=== PATIENT | female | born 1965 | race Hispanic/Latino ===

== ENCOUNTER 2021-09-13 08:39 | Outpatient (CLI) | payer OTHER, SELFPAY | END 2021-09-13 08:40 | disposition home or self-care (01) | LOC: CSHWCC 08:39 | PROVIDERS: ATTEND Nurse Practitioner Family | DX: I87.312 Chronic venous hypertension (idiopathic) with ulcer of left lower extremity (principal); L97.822 Non-pressure chronic ulcer of other part of left lower leg with fat layer exposed; R60.0 Localized edema | CPT/HCPCS: 11042; 99203; G0463 ==

== ENCOUNTER 2021-09-27 10:33 | Outpatient (CLI) | payer OTHER | END 2021-09-27 10:34 | disposition home or self-care (01) | LOC: CSHWCC 10:33 | PROVIDERS: ATTEND Nurse Practitioner Family | DX: I87.312 Chronic venous hypertension (idiopathic) with ulcer of left lower extremity (principal); L97.822 Non-pressure chronic ulcer of other part of left lower leg with fat layer exposed; R60.0 Localized edema | CPT/HCPCS: 99213; G0463 ==

== ENCOUNTER 2021-10-07 08:02 | Outpatient (CLI) | payer OTHER, SELFPAY | END 2021-10-07 08:03 | disposition home or self-care (01) | LOC: CSHWCC 08:02 | PROVIDERS: ATTEND Nurse Practitioner Family | DX: I87.312 Chronic venous hypertension (idiopathic) with ulcer of left lower extremity (principal); L97.822 Non-pressure chronic ulcer of other part of left lower leg with fat layer exposed; R60.0 Localized edema | CPT/HCPCS: 11042 ==

== ENCOUNTER 2021-10-21 08:44 | Outpatient (CLI) | payer OTHER | END 2021-10-21 08:45 | disposition home or self-care (01) | LOC: CSHWCC 08:44 | PROVIDERS: ATTEND Nurse Practitioner Family | DX: I87.312 Chronic venous hypertension (idiopathic) with ulcer of left lower extremity (principal); L97.822 Non-pressure chronic ulcer of other part of left lower leg with fat layer exposed; R60.0 Localized edema ==

== ENCOUNTER 2021-11-21 14:55 | Outpatient (CLI) | payer SELFPAY | END 2021-11-21 14:56 | disposition home or self-care (01) | LOC: CSHWCC 14:55 | PROVIDERS: ATTEND Nurse Practitioner Family | DX: I87.312 Chronic venous hypertension (idiopathic) with ulcer of left lower extremity (principal); L97.822 Non-pressure chronic ulcer of other part of left lower leg with fat layer exposed; R60.0 Localized edema ==

== ENCOUNTER 2021-12-15 08:13 | Outpatient (CLI) | payer OTHER | END 2021-12-15 08:14 | disposition home or self-care (01) | LOC: CSHWCC 08:13 | PROVIDERS: ATTEND Nurse Practitioner Family | DX: I87.312 Chronic venous hypertension (idiopathic) with ulcer of left lower extremity (principal); L97.822 Non-pressure chronic ulcer of other part of left lower leg with fat layer exposed; R60.0 Localized edema ==

== ENCOUNTER 2022-08-31 13:10 | Inpatient (IN) | payer SELFPAY ==
[~2022-08-31 13:10] MED LIST: Iopamidol 370 76% 100 ML VIAL ONE
[2022-08-31 13:57] LABS: Hemoglobin 8.4 g/dL (12.0-15.5); Mean Corpuscular HGB CONC 32.1 g/dL (32.0-36.0); Mean Corpuscular Hemoglobin 30.7 pg (27.0-33.0); Mean Corpuscular Volume 95.6 fl (81.6-98.3); Mean Platelet Volume 9.7 fl (7.4-10.4); Platelet Count 437 10x3/uL (150-450); Red Blood Cell (RBC) Count 2.74 10x6/uL (3.90-5.03); White Blood Cell (WBC) Count 13.8 10x3/uL (3.5-10.5)
[2022-08-31 14:18] LABS: ALT (SGPT) 15 U/L (8-55); AST (SGOT) 17 U/L (5-34); Albumin 3.8 g/dL (3.5-5.0); Alkaline Phosphatase 88 U/L (40-110); Anion Gap 23 mmol/L (10-20); BUN (Urea Nitrogen) 43 mg/dL (9.8-20.1); Bilirubin, Total 0.3 mg/dL (0.2-1.2); CK (CPK) 27 U/L (29-168); Calc. Creatinine Clearance 0 mL/min (70-130); Calcium 8.8 mg/dL (7.8-10.44); Carbon Dioxide 23 mmol/L (22-29); Chloride 95 mmol/L (98-107); Estimated GFR 27; Globulin 2.4 g/dL (2.4-3.5); Lipase 40 U/L (8-78); MDiff Complete? YES; Magnesium 1.8 mg/dL (1.6-2.6); Manual Diff?? YES; Potassium 4.2 mmol/L (3.5-5.1); Protein, Total 6.2 g/dL (6.0-8.3); Sodium 137 mmol/L (136-145)
[2022-08-31 14:21] LABS: Glucose 52 mg/dL (70-105)
[2022-08-31] MEDS ORDERED: Dextrose 50% Abboject 50 ML SYRINGE ONE (14:31)
[2022-08-31 14:32] LABS: Bilirubin Neg (Negative); Blood, Urine 10 (Negative); Clarity Clear (Clear); Glucose, Urine (Dipstick) Normal (Negative); Ketone, Urine Negative (Negative); Leukocyte Negative (Negative); Nitrite Negative (Negative); Protein, Urine (Dipstick) 100 mg/dl (Neg-Trace); Specific Gravity, Urine 1.015 (1.005-1.030); Urobilinogen Normal mg/dL (Less than 2)
[2022-08-31] MEDS ORDERED: cefTRIAXone (ROCEPHIN) 2 GM VIAL ONE (14:32)
[2022-08-31 14:37] LABS: Band 5 % (5-11); Lymphocytes 22 % (21-51); Metamyelocyte 6 % (0-0); Monocytes 8 % (0-10); Myelocyte 2 % (0-0); Neutrophil 56 % (42-75); Nucleated RBC (Manual Ct) 1 % (0); Reactive Lymphocytes 1 % (0-10)
[2022-08-31 14:39] LABS: Anisocytosis SLIGHT = 6-15 cells (100X) (0-5/hpf); Platelet Morphology Comment Appears Adequate
[2022-08-31 14:40] LABS: Bite Cells SLIGHT = 2-5 cells (100X) (0-1/hpf); Hypochromia SLIGHT = 6-15 cells (100X) (0-5/hpf); Macrocytosis SLIGHT = 6-15 cells (100X) (0-5/hpf); Microcytosis SLIGHT = 6-15 cells (100X) (0-5/hpf); Ovalocytes SLIGHT = 2-5 cells (100X) (0-1/hpf); Polychromasia SLIGHT = 2-3 cells (100X) (0-2/hpf)
[2022-08-31 14:56] LABS: CAUTI Indications for Culture Dysuria,urgency,freq; RBC/HPF 0-3 HPF (0-3); Squamous Epithelial 0-3 HPF (0-3); WBC/HPF 0-3 HPF (0-3)
[2022-08-31 14:57] LABS: Bacteria/HPF 2+ HPF (None Seen); Mucous/LPF 1+ LPF (<2+)
[2022-08-31 14:58] LABS: Transitional Epithelial 0-3 HPF (None Seen)
[2022-08-31 14:59] LABS: Urine Culture Reflex No No
[2022-08-31] MEDS ORDERED: Vancomycin 1 GM VIAL ONE (16:45)
[2022-08-31 17:03] LABS: Lactic Acid 4.1 mmol/L (0.5-2.2)
[2022-08-31] MEDS ORDERED: Vancomycin HCl 1 GM in Sodium Chloride 0.9% 250 ML 250 ML IVPB SCH (17:30)
[2022-08-31] MEDS ORDERED: Dextrose 50% Abboject 50 ML SYRINGE SLOW IVP PRN (17:34)
[2022-08-31] MEDS ORDERED: Dextrose 5% in Water 1,000 ML IV PRN (17:34)
[2022-08-31 18:35] VITALS: BMI 30.6
[2022-08-31] MEDS ORDERED: Vancomycin HCl 1.25 GM, Admixture Fee 1 EACH in Sodium Chloride 0.9% 250 ML 250 ML IVPB SCH (18:45)
[2022-08-31] MEDS: Sodium Chloride 0.9% 1,000 ML IV SCH ×2 (18:45→20:28)
[2022-08-31] MEDS ORDERED: Vancomycin Dose by Levels Sliding Scale (Wt 71-99) FS SCH (18:45)
[2022-08-31] MEDS: Cefepime 1 GM in Sodium Chloride 0.9% 100 ML IVPB SCH (20:28)
[2022-08-31] MEDS: Atorvastatin Calcium 40 MG TAB PO SCH (20:28)
[2022-08-31] MEDS ORDERED: Apixaban 2.5 MG TAB PO SCH (21:00)
[2022-09-01 04:31] LABS: Hemoglobin 7.3 g/dL (12.0-15.5); Mean Corpuscular HGB CONC 31.9 g/dL (32.0-36.0); Mean Corpuscular Hemoglobin 30.4 pg (27.0-33.0); Mean Corpuscular Volume 95.4 fl (81.6-98.3); Mean Platelet Volume 9.4 fl (7.4-10.4); Platelet Count 352 10x3/uL (150-450); White Blood Cell (WBC) Count 9.9 10x3/uL (3.5-10.5)
[2022-09-01 04:32] LABS: MDiff Complete? YES
[2022-09-01 04:40] LABS: Lactic Acid 0.7 mmol/L (0.5-2.2)
[2022-09-01 04:43] LABS: Anion Gap 17 mmol/L (10-20); BUN (Urea Nitrogen) 39 mg/dL (9.8-20.1); Calc. Creatinine Clearance 55 mL/min (70-130); Calcium 7.8 mg/dL (7.8-10.44); Carbon Dioxide 23 mmol/L (22-29); Chloride 103 mmol/L (98-107); Estimated GFR 43; Glucose 87 mg/dL (70-105); Potassium 3.9 mmol/L (3.5-5.1); Sodium 139 mmol/L (136-145)
[2022-09-01 04:53] LABS: Band 14 % (5-11); Lymphocytes 25 % (21-51); Metamyelocyte 3 % (0-0); Monocytes 7 % (0-10); Neutrophil 51 % (42-75)
[2022-09-01 04:56] LABS: Hypochromia SLIGHT = 6-15 cells (100X) (0-5/hpf); Macrocytosis SLIGHT = 6-15 cells (100X) (0-5/hpf); Microcytosis SLIGHT = 6-15 cells (100X) (0-5/hpf); Polychromasia SLIGHT = 2-3 cells (100X) (0-2/hpf)
[2022-09-01 04:57] LABS: Platelet Morphology Comment Appears Adequate
[2022-09-01 07:33] LABS: Phosphorus 3.9 mg/dL (2.3-4.7)
[2022-09-01 07:42] LABS: Magnesium 1.7 mg/dL (1.6-2.6)
[2022-09-01] MEDS ORDERED: Famotidine 20 MG TAB PO SCH (09:00)
[2022-09-01] MEDS ORDERED: Cefepime 1 GM VIAL ONE (09:59)
[2022-09-01] MEDS ORDERED: Sodium Chloride 0.9% 100 ML ONE (09:59)
[2022-09-01] MEDS: Cefepime 1 GM in Sodium Chloride 0.9% 100 ML IVPB SCH ×2 (10:15→20:31)
[2022-09-01 11:01] LABS: Hemoglobin 7.5 g/dL (12.0-15.5); Platelet Count 359 10x3/uL (150-450)
[2022-09-01] MEDS ORDERED: Pantoprazole 40 MG VIAL IVP SCH (11:30)
[2022-09-01 11:56] LABS: Legionella Urinary Ag Negative (Negative)
[2022-09-01 11:57] LABS: Strep pneumo Urine Ag NEGATIVE (NEGATIVE)
[2022-09-01] MEDS ORDERED: Apixaban 5 MG TAB PO SCH (14:00)
[2022-09-01 19:26] LABS: Vancomycin, Random 7.4 ug/mL (See Comment)
[2022-09-01] MEDS ORDERED: Vancomycin HCl 1 GM in Sodium Chloride 0.9% 250 ML 250 ML IVPB SCH (20:00)
[2022-09-01] MEDS: Atorvastatin Calcium 40 MG TAB PO SCH (20:31)
[2022-09-01] MEDS: Apixaban 5 MG TAB PO SCH (20:31)
[2022-09-01] MEDS: HumaLOG 300 UNITS/3 ML VIAL SC PRN (20:39)
[2022-09-01] MEDS: Acetaminophen 325 MG TAB PO PRN (20:48)
[2022-09-01] MEDS: Guaifenesin DM 100-10/5 ML UDCUP PO PRN (22:28)
[2022-09-02] MEDS: Acetaminophen 325 MG TAB PO PRN (04:34)
[2022-09-02] MEDS: HumaLOG 300 UNITS/3 ML VIAL SC PRN ×2 (04:36→21:04)
[2022-09-02] MEDS: Guaifenesin DM 100-10/5 ML UDCUP PO PRN (04:39)
[2022-09-02 05:33] LABS: Magnesium 1.7 mg/dL (1.6-2.6)
[2022-09-02 08:33] LABS: Hemoglobin 7.5 g/dL (12.0-15.5); Mean Corpuscular HGB CONC 31.8 g/dL (32.0-36.0); Mean Corpuscular Hemoglobin 30.7 pg (27.0-33.0); Mean Corpuscular Volume 96.7 fl (81.6-98.3); Mean Platelet Volume 9.9 fl (7.4-10.4); Platelet Count 384 10x3/uL (150-450); RBC Distribution Width 15.3 % (11.5-14.5); Red Blood Cell (RBC) Count 2.44 10x6/uL (3.90-5.03); White Blood Cell (WBC) Count 9.9 10x3/uL (3.5-10.5)
[2022-09-02 08:38] LABS: ALT (SGPT) 12 U/L (8-55); AST (SGOT) 14 U/L (5-34); Albumin 3.1 g/dL (3.5-5.0); Alkaline Phosphatase 67 U/L (40-110); Anion Gap 15 mmol/L (10-20); BUN (Urea Nitrogen) 32 mg/dL (9.8-20.1); Bilirubin, Total 0.2 mg/dL (0.2-1.2); Calc. Creatinine Clearance 79 mL/min (70-130); Calcium 8.3 mg/dL (7.8-10.44); Carbon Dioxide 25 mmol/L (22-29); Chloride 106 mmol/L (98-107); Estimated GFR 66; Globulin 2.5 g/dL (2.4-3.5); Glucose 153 mg/dL (70-105); Potassium 3.8 mmol/L (3.5-5.1); Protein, Total 5.6 g/dL (6.0-8.3); Sodium 142 mmol/L (136-145)
[2022-09-02] MEDS ORDERED: Pantoprazole 40 MG VIAL IVP SCH (09:00)
[2022-09-02 09:06] LABS: Band 6 % (5-11); Lymphocytes 22 % (21-51); Metamyelocyte 1 % (0-0); Monocytes 7 % (0-10); Myelocyte 4 % (0-0); Reactive Lymphocytes 1 % (0-10)
[2022-09-02 09:08] LABS: Anisocytosis SLIGHT = 6-15 cells (100X) (0-5/hpf); Hypochromia SLIGHT = 6-15 cells (100X) (0-5/hpf); Microcytosis SLIGHT = 6-15 cells (100X) (0-5/hpf); Neutrophil 58 % (42-75); Polychromasia SLIGHT = 2-3 cells (100X) (0-2/hpf)
[2022-09-02 09:09] LABS: Platelet Morphology Comment Platelets Normal
[2022-09-02 09:10] LABS: Large Platelets SLIGHT (None Seen)
[2022-09-02 09:11] LABS: MDiff Complete? YES
[2022-09-02 09:12] LABS: Macrocytosis SLIGHT = 6-15 cells (100X) (0-5/hpf); Manual Diff?? YES; Ovalocytes SLIGHT = 2-5 cells (100X) (0-1/hpf)
[2022-09-02] MEDS: Cefepime 1 GM in Sodium Chloride 0.9% 100 ML IVPB SCH (09:28)
[2022-09-02] MEDS: Apixaban 5 MG TAB PO SCH (09:29)
[2022-09-02] MEDS ORDERED: Acetaminophen 650 MG Suppository PR PRN (11:13)
[2022-09-02] MEDS ORDERED: Furosemide 40 MG/4 ML VIAL SLOW IVP SCH (11:15)
[2022-09-02] MEDS: cefOXitin Sodium 2 GM, Admixture Fee 1 EACH in Sodium Chloride 0.9% 100 ML IVPB SCH ×2 (15:40→22:17)
[2022-09-02] MEDS: Amino Acids 4.25 %/Dextrose 5% 1,000 ML IV SCH (17:17)
[2022-09-02] MEDS: Enalaprilat Dihydrate 1.25 MG/ML VIAL SLOW IVP SCH ×2 (18:50→23:36)
[2022-09-02] MEDS: Atorvastatin Calcium 40 MG TAB PO SCH (20:57)
[2022-09-03] MEDS: HumaLOG 300 UNITS/3 ML VIAL SC PRN ×4 (01:04→21:58)
[2022-09-03 04:31] LABS: Hemoglobin 7.5 g/dL (12.0-15.5); Mean Corpuscular HGB CONC 32.2 g/dL (32.0-36.0); Mean Corpuscular Hemoglobin 30.6 pg (27.0-33.0); Mean Corpuscular Volume 95.1 fl (81.6-98.3); Mean Platelet Volume 9.7 fl (7.4-10.4); Platelet Count 371 10x3/uL (150-450); RBC Distribution Width 14.7 % (11.5-14.5); Red Blood Cell (RBC) Count 2.45 10x6/uL (3.90-5.03); White Blood Cell (WBC) Count 9.9 10x3/uL (3.5-10.5)
[2022-09-03 04:37] LABS: ALT (SGPT) 11 U/L (8-55); AST (SGOT) 15 U/L (5-34); Albumin 3.2 g/dL (3.5-5.0); Alkaline Phosphatase 69 U/L (40-110); Anion Gap 14 mmol/L (10-20); BUN (Urea Nitrogen) 27 mg/dL (9.8-20.1); Bilirubin, Total 0.2 mg/dL (0.2-1.2); Calc. Creatinine Clearance 97 mL/min (70-130); Calcium 8.2 mg/dL (7.8-10.44); Carbon Dioxide 25 mmol/L (22-29); Chloride 104 mmol/L (98-107); Estimated GFR 85; Globulin 2.3 g/dL (2.4-3.5); Glucose 176 mg/dL (70-105); Potassium 3.4 mmol/L (3.5-5.1); Protein, Total 5.5 g/dL (6.0-8.3); Sodium 140 mmol/L (136-145)
[2022-09-03] MEDS ORDERED: cloNIDine 0.1mg/24 Hour PATCH TD SCH (04:45)
[2022-09-03 05:19] LABS: MDiff Complete? YES
[2022-09-03 05:25] LABS: Band 4 % (5-11); Lymphocytes 15 % (21-51); Metamyelocyte 3 % (0-0); Monocytes 6 % (0-10); Myelocyte 2 % (0-0); Neutrophil 69 % (42-75); Promyelocytes 1 % (0-0)
[2022-09-03 05:26] LABS: Hypochromia SLIGHT = 6-15 cells (100X) (0-5/hpf); Microcytosis SLIGHT = 6-15 cells (100X) (0-5/hpf); Polychromasia SLIGHT = 2-3 cells (100X) (0-2/hpf)
[2022-09-03 05:27] LABS: Platelet Morphology Comment Appears Adequate
[2022-09-03] MEDS: cefOXitin Sodium 2 GM, Admixture Fee 1 EACH in Sodium Chloride 0.9% 100 ML IVPB SCH ×3 (05:57→22:01)
[2022-09-03] MEDS: Enalaprilat Dihydrate 1.25 MG/ML VIAL SLOW IVP SCH ×4 (06:02→22:06)
[2022-09-03] MEDS: Furosemide 40 MG/4 ML VIAL SLOW IVP SCH (09:21)
[2022-09-03] MEDS: Pantoprazole 40 MG VIAL IVP SCH (09:21)
[2022-09-03] MEDS: Guaifenesin DM 100-10/5 ML UDCUP PO PRN (09:27)
[2022-09-03] MEDS ORDERED: Guaifenesin DM 100-10/5 ML UDCUP ONE (09:27)
[2022-09-03] MEDS ORDERED: Labetalol HCl 100 MG/20 ML VIAL SLOW IVP PRN (09:59)
[2022-09-03] MEDS ORDERED: Electrolyte Replacement Protocol 1 EACH FS SCH (11:45)
[2022-09-03] MEDS ORDERED: Magnesium 2 GM/50 ML(in water) 2 GM in Premix Bag 1 BAG IVPB SCH (12:00)
[2022-09-03] MEDS: Potassium Chloride 20 MEQ in Premix Bag 1 BAG IVPB SCH ×2 (13:35→15:14)
[2022-09-03] MEDS: Amino Acids 4.25 %/Dextrose 5% 1,000 ML IV SCH (13:45)
[2022-09-03] MEDS: Atorvastatin Calcium 40 MG TAB PO SCH (20:24)
[2022-09-04] MEDS: HumaLOG 300 UNITS/3 ML VIAL SC PRN ×3 (00:23→16:30)
[2022-09-04] MEDS: Enalaprilat Dihydrate 1.25 MG/ML VIAL SLOW IVP SCH ×2 (04:39→09:12)
[2022-09-04 04:58] LABS: Anion Gap 14 mmol/L (10-20); BUN (Urea Nitrogen) 29 mg/dL (9.8-20.1); Calc. Creatinine Clearance 98 mL/min (70-130); Calcium 8.3 mg/dL (7.8-10.44); Carbon Dioxide 23 mmol/L (22-29); Chloride 105 mmol/L (98-107); Estimated GFR 86; Glucose 170 mg/dL (70-105); Iron 57 ug/dL (50-170); Iron Binding Capacity, Total 201 mcg/dL (265-497); Magnesium 1.8 mg/dL (1.6-2.6); Sodium 138 mmol/L (136-145)
[2022-09-04] MEDS: cefOXitin Sodium 2 GM, Admixture Fee 1 EACH in Sodium Chloride 0.9% 100 ML IVPB SCH ×3 (05:56→22:07)
[2022-09-04] MEDS ORDERED: Ergocalciferol 1.25 MG(50,000 UNITS) CAP PO SCH (09:00)
[2022-09-04] MEDS ORDERED: Magnesium 2 GM/50 ML(in water) 2 GM in Premix Bag 1 BAG IVPB SCH (09:00)
[2022-09-04] MEDS: Furosemide 40 MG/4 ML VIAL SLOW IVP SCH (09:11)
[2022-09-04] MEDS: Pantoprazole 40 MG VIAL IVP SCH (09:13)
[2022-09-04] MEDS: Amino Acids 4.25 %/Dextrose 5% 1,000 ML IV SCH (12:19)
[2022-09-04] MEDS: metFORMIN 500 MG TAB PO SCH (16:30)
[2022-09-04] MEDS: Carvedilol 6.25 MG TAB PO SCH (22:05)
[2022-09-04] MEDS: Atorvastatin Calcium 40 MG TAB PO SCH (22:06)
[2022-09-04] MEDS: Lisinopril 20 MG TAB PO SCH (22:06)
[2022-09-05] MEDS ORDERED: Melatonin 3 MG TAB PO SCH (00:45)
[2022-09-05] MEDS: Apixaban 5 MG TAB PO SCH ×2 (01:56→09:24)
[2022-09-05 04:45] LABS: #Basophils 0.1 10x3/uL (0.0-0.2); #Monocytes 0.6 10x3/uL (0.0-1.1); #Neutrophils 6.3 10x3/uL (1.5-8.4); %Basophils 0.9 % (0.0-2.0); %Eosinophils 0.3 % (0.0-6.0); %Lymphocytes 18.1 % (18.0-47.0); %Neutrophils 69.3 % (40.0-75.0); Hemoglobin 7.5 g/dL (12.0-15.5); Mean Corpuscular HGB CONC 31.8 g/dL (32.0-36.0); Mean Corpuscular Hemoglobin 30.4 pg (27.0-33.0); Mean Corpuscular Volume 95.5 fl (81.6-98.3); Mean Platelet Volume 9.7 fl (7.4-10.4); Platelet Count 344 10x3/uL (150-450); RBC Distribution Width 15.2 % (11.5-14.5); Red Blood Cell (RBC) Count 2.47 10x6/uL (3.90-5.03)
[2022-09-05 05:03] LABS: Anion Gap 14 mmol/L (10-20); BUN (Urea Nitrogen) 33 mg/dL (9.8-20.1); Calc. Creatinine Clearance 74 mL/min (70-130); Calcium 8.2 mg/dL (7.8-10.44); Carbon Dioxide 23 mmol/L (22-29); Chloride 105 mmol/L (98-107); Estimated GFR 62; Glucose 296 mg/dL (70-105); Magnesium 2.3 mg/dL (1.6-2.6); Potassium 3.7 mmol/L (3.5-5.1); Sodium 138 mmol/L (136-145)
[2022-09-05] MEDS: HumaLOG 300 UNITS/3 ML VIAL SC PRN ×3 (05:44→12:24)
[2022-09-05] MEDS: cefOXitin Sodium 2 GM, Admixture Fee 1 EACH in Sodium Chloride 0.9% 100 ML IVPB SCH (05:45)
[2022-09-05] MEDS ORDERED: NIFEdipine XL 30 MG TAB PO SCH (09:00)
[2022-09-05] MEDS: Carvedilol 6.25 MG TAB PO SCH (09:23)
[2022-09-05] MEDS: metFORMIN 500 MG TAB PO SCH ×2 (09:24→18:15)
[2022-09-05] MEDS: Lisinopril 20 MG TAB PO SCH (09:24)
[2022-09-05] MEDS: Furosemide 40 MG/4 ML VIAL SLOW IVP SCH (09:27)
[2022-09-05] MEDS ORDERED: cefOXitin Sodium/Dextrose,Iso 2 GM in Premix Bag 1 BAG IVPB SCH (14:00)
[2022-09-05 17:21] VITALS: BP 119/56; TEMP 98
[2022-09-10] MEDS ORDERED: cloNIDine 0.1mg/24 Hour PATCH TD SCH (09:00)
== END 2022-09-05 20:09 | disposition home or self-care (01) | DRG 871 ==
LOC: CSHERS 13:10 → CSHTELE 18:06
PROVIDERS: ADMIT Internal Medicine; ATTEND Family Medicine
PROC: 3E03329 Introduction of Other Anti-infective into Peripheral Vein, Percutaneous Approach (ICD-10-PCS; principal; 2022-08-31)
PROC: 0T9B70Z Drainage of Bladder with Drainage Device, Via Natural or Artificial Opening (ICD-10-PCS; 2022-09-03)
DX: A41.9 Sepsis, unspecified organism (principal); J18.9 Pneumonia, unspecified organism; J69.0 Pneumonitis due to inhalation of food and vomit; N17.9 Acute kidney failure, unspecified; E87.20 Acidosis, unspecified; M84.461A Pathological fracture, right tibia, initial encounter for fracture; I10 Essential (primary) hypertension; E78.5 Hyperlipidemia, unspecified; E11.42 Type 2 diabetes mellitus with diabetic polyneuropathy; E11.649 Type 2 diabetes mellitus with hypoglycemia without coma; D64.9 Anemia, unspecified; R65.20 Severe sepsis without septic shock; R33.9 Retention of urine, unspecified; Z88.0 Allergy status to penicillin; Z79.84 Long term (current) use of oral hypoglycemic drugs; Z79.01 Long term (current) use of anticoagulants; Z79.899 Other long term (current) drug therapy; Z90.49 Acquired absence of other specified parts of digestive tract; Z86.711 Personal history of pulmonary embolism; Z79.4 Long term (current) use of insulin
CPT/HCPCS: 36415; 36416; 70450; 71045; 71275; 74177; 74230; 80048; 80053; 80202; 81001; 82533; 82550; 82607; 83540; 83550; 83605; 83615; 83690; 83735; 83880; 84100; 84145; 84443; 84484; 85025; 87040; 87081; 87449; 87633; 87899; 93005; 93010; 94760; C9113; J0692; J0694; J0696; J1650; J1815; J1940; J3370; J3475; J3480; J3490; J7050; J7999; Q9967

== ENCOUNTER 2022-12-25 13:12 | Outpatient (CLI) | payer SELFPAY | END 2022-12-25 13:13 | disposition home or self-care (01) | LOC: CSHWCC 13:12 | PROVIDERS: ATTEND Preventive Medicine Undersea and Hyperbaric Medicine | DX: I87.331 Chronic venous hypertension (idiopathic) with ulcer and inflammation of right lower extremity (principal); L97.819 Non-pressure chronic ulcer of other part of right lower leg with unspecified severity; R60.0 Localized edema | CPT/HCPCS: 11042; 11045 ==

== ENCOUNTER 2023-01-08 14:27 | Outpatient (CLI) | payer SELFPAY | END 2023-01-08 14:28 | disposition home or self-care (01) | LOC: CSHWCC 14:27 | PROVIDERS: ATTEND Nurse Practitioner Family | DX: T24.212D Burn of second degree of left thigh, subsequent encounter (principal); T24.1 Burn of first degree of lower limb, except ankle and foot; S91.104D Unspecified open wound of right lesser toe(s) without damage to nail, subsequent encounter; S91.101D Unspecified open wound of right great toe without damage to nail, subsequent encounter; I87.331 Chronic venous hypertension (idiopathic) with ulcer and inflammation of right lower extremity; L97.819 Non-pressure chronic ulcer of other part of right lower leg with unspecified severity; R60.0 Localized edema | CPT/HCPCS: 99213; G0463 ==